=== PATIENT | female | born 1975 | race Caucasian/White ===

== ENCOUNTER 2018-07-26 11:29 | Inpatient (IN) | payer OTHER ==
[~2018-07-26] VITALS: Ht 165.1 cm; Wt 80.4 kg
[2018-07-26] MEDS ORDERED: SODIUM CHLORIDE 0.9% 1,000 ML IVB ONE (12:55)
[2018-07-26] MEDS ORDERED: PANTOPRAZOLE 40 MG/10 ML VIAL INJ IV STA (12:55)
[2018-07-26] MEDS ORDERED: MORPHINE SULF INJ 2 MG/ML SYRINGE 1ML IV ONE (13:00)
[2018-07-26 13:11] LABS: Urine Bacteria FEW /hpf (None Seen); Urine Blood TRACE /uL (Negative); Urine Specific Gravity 1.019 (1.001-1.035); Urine WBC 6 /hpf (0 - 5)
[2018-07-26] MEDS: PROMETHAZINE HCL 25 MG/ML 1ML IV PRN ×2 (13:45→21:43)
[2018-07-26 14:15] LABS: Basophils # (auto) 0.1 uL; Basophils % (auto) 0.6 % (0.0-2.0); Eosinophils # (auto) 0.3 uL; Eosinophils % (auto) 1.4 % (0.0-7.0); Hematocrit 49.1 % (36.0-46.0); Hemoglobin 16.8 g/dL (12.2-16.2); Lymphocytes # (auto) 0.6 uL; Mean Corpuscular Hemoglobin 30.4 pg (28.0-32.0); Mean Corpuscular Hgb Conc. 34.3 g/dL (32.0-36.0); Mean Corpuscular Volume 88.6 fL (80.0-100.0); Monocytes # (auto) 1.1 uL; Neutrophils # (auto) 16.3 uL; Platelet Count (auto) 203 10^3/uL (140-450); Red Blood Cells 5.54 10^6/uL (4.0-5.20); Red Cell Distribution Width 16.7 % (11.8-14.3); White Blood Cell 18.3 10^3/uL (4.4-10.8)
[2018-07-26 14:30] LABS: Albumin 3.9 g/dL (3.4-5.0); Calcium 9.4 mg/dL (8.5-10.1); Potassium 4.3 mmol/L (3.5-5.1)
[2018-07-26] MEDS ORDERED: cefTRIAXone 1GM/50ML D5W 50 ML IV ONE (14:30)
[2018-07-26] MEDS ORDERED: metroNIDAZOLE 500MG/100ML 100 ML IV ONE (14:30)
[2018-07-26 14:31] LABS: INR 0.99 (0.9-1.15); Partial Thromboplastin Time 27.3 sec (23.78-33.04); Prothrombin Time 10.6 sec (9.27-12.13)
[2018-07-26 14:32] LABS: BUN/Creatinine Ratio 17.8
[2018-07-26 14:35] LABS: Bilirubin, Total 0.5 mg/dL (0.2-1.0); Total Protein 7.5 g/dL (6.4-8.2)
[2018-07-26] MEDS ORDERED: PANTOPRAZOLE 80 MG in SODIUM CHL 0.9% 60 ML IV ONE (14:45)
[2018-07-26 14:51] LABS: Magnesium 1.7 mg/dL (1.6-2.6)
[2018-07-26] MEDS ORDERED: HYDROcodone-ACET 5/325MG TAB PO PRN (16:00)
[2018-07-26] MEDS ORDERED: NITROGLYCERIN 0.4 MG SL TAB SL PRN (16:00)
[2018-07-26] MEDS ORDERED: MORPHINE SULF INJ 2 MG/ML SYRINGE 1ML IV PRN (16:00)
[2018-07-26] MEDS ORDERED: ONDANSETRON HCL 4 MG/2 ML VIAL IV PRN (16:00)
[2018-07-26] MEDS ORDERED: DEXTROSE (50%) 50ML SYRG IV PRN (16:00)
[2018-07-26] MEDS ORDERED: LORazepam 2MG/ML-1ML VIAL IV PRN (16:15)
[2018-07-26] MEDS: MORPHINE SULF INJ 2 MG/ML SYRINGE 1ML IV PRN ×2 (16:34→21:43)
[2018-07-26] MEDS: SODIUM CHLORIDE 0.9% 1,000 ML IV SCH (16:36)
[2018-07-26] MEDS: InsuLIN REG 1unit/0.01ml Soln (100units/ml) SC SCH (18:50)
[2018-07-26] MEDS: ACCU-CHEK COMFORT CURVE STRIP VI SCH (18:51)
--- NOTE | 2018-07-26 20:30 | NUR ---
Telemetry admit from [facility] admitted to Telemetry unit after SBAR received. Patient oriented to johnnie Rodgers RN, unit, room, bed, and unit policies regarding patient care and visiting hours. Patient now on continuous telemetry monitoring, tele box # 37 and telemetry reading on arrival to unit is Sinus tachycardia 101. Patient placed on bedside oxygen, weighed by bedscale and encouraged to call if they need something. All questions and concerns addressed, patient verbalized understanding. Admission assessment started. Patient admitted for rectal bleeding. at bedside. Care assumed. Note: Addendum: 07/27/18 at 0600 by Kary Kaufman RN incorrect time Addendum: 07/27/18 at 0601 by Kary Kaufman RN verbal report received from LEON JIMÉNEZ
[2018-07-26 21:00] VITALS: BP 155/99
--- NOTE | 2018-07-26 21:00 | NUR ---
Protonix IV bag not brought up with patient. Called ER but unable to talk to OVERSIZE LOAD PILOT ESCORT who took care of patient at this time. Care continued.
--- NOTE | 2018-07-26 21:30 | NUR ---
Patient used bathroom and verbalized that she had bleeding per rectum, however patient flushed toilet. Patient advised not to flush toilet so I can witness the rectal bleeding. Patient also advised to used bedside commode with a hat for close monitoring and patient safety. Patient verbalized understanding. Called BUSINESS CONTROL SPECIALIST again to follow-up regarding protonix bag since it can not be pulled out because it is only a one time dose. Still unable to talk to BUSINESS CONTROL SPECIALIST who took care of patient. Will attempt to call again. Care continued.
[2018-07-26] MEDS ORDERED: PANTOPRAZOLE IV ONE (21:45)
[2018-07-26] MEDS ORDERED: SODIUM CHL 0.9% IV ONE (21:45)
--- NOTE | 2018-07-26 21:45 | NUR ---
Called ER again, BUTADIENE CONVERTER HELPER who took care of patient still not available. Requested ER staff to check for protonix bag, was advised said medication was not there and to call Pharmacy instead. Pharmacy called, per pharmacy, they will not be able to send bag because it has been documented that said medication was already started in ER. Pharmacy however agreed to send the remaining half dose that still needed to be infused. Will wait for the medication to arrive. Care continued.
[2018-07-26 22:00] VITALS: BP 155/99
[2018-07-26] MEDS ORDERED: FAMOTIDINE (10MG/ML) 2ML VL IV SCH (22:00)
--- NOTE | 2018-07-26 22:00 | NUR ---
Witnessed milena red blood per rectum from patient using bedside commode. Half bag of protonix IV received from Pharmacy, infusion started as ordered by MD. Hospitalist paged regarding patient's current status. Care continued.
[2018-07-26] MEDS: metroNIDAZOLE 500MG/100ML 100 ML IV SCH (22:21)
[2018-07-26] MEDS: PANTOPRAZOLE 80 MG in SODIUM CHL 0.9% 60 ML IV SCH (23:00)
--- NOTE | 2018-07-26 23:00 | NUR ---
Received call from hospitalist Fantasma Paez NP, order received for H&H stat and to continue IV protonix drip. Previously ordered one time IV Protonix drip still infusing. Care continued.
[2018-07-26 23:18] LABS: Hematocrit 49.9 % (36.0-46.0)
--- NOTE | 2018-07-26 23:30 | NUR ---
Unable to find IV protonix even through global find. bag end sewer made aware. Care continued.
--- NOTE | 2018-07-27 | NUR ---
Hospitalist Fantasma Paez NP paged. awaiting for call back. Care continued.
--- NOTE | 2018-07-27 00:30 | NUR ---
Call back received from Fantasma Paez NP, advised to contact manager operations research pharmacy. cutter operator brick Melita made aware, per broker in charge, she will notify housekeeping staff. Patient still bleeding per rectum. Care continued.
[2018-07-27] MEDS: ACCU-CHEK COMFORT CURVE STRIP VI SCH ×4 (00:36→17:47)
[2018-07-27] MEDS: LABETALOL HCL 5 MG/ML ML 20ML VIAL IV PRN ×3 (00:37→13:39)
[2018-07-27] MEDS: InsuLIN REG 1unit/0.01ml Soln (100units/ml) SC SCH ×4 (00:47→17:47)
--- NOTE | 2018-07-27 01:00 | NUR ---
Per charge account authorizer Debbie, hotel houseman said there is no protonix IV available and hospitalist will be made aware. Care continued.
--- NOTE | 2018-07-27 02:00 | NUR ---
Protonix IV drip almost done, awaiting for orders from hospitalist. Care continued.
[2018-07-27] MEDS: SODIUM CHLORIDE 0.9% 1,000 ML IV SCH ×3 (02:11→21:58)
[2018-07-27] MEDS: PROMETHAZINE HCL 25 MG/ML 1ML IV PRN ×2 (02:17→06:59)
[2018-07-27] MEDS: MORPHINE SULF INJ 2 MG/ML SYRINGE 1ML IV PRN ×3 (02:18→11:38)
--- NOTE | 2018-07-27 03:30 | NUR ---
Patient had about 400c of milena blood per rectum. Hospitalist Fantasma Paez NP, paged. Care continued.
[2018-07-27] MEDS ORDERED: CLOP75TA41 (03:36)
[2018-07-27] MEDS ORDERED: LISI-646 PO (03:36)
[2018-07-27] MEDS ORDERED: MET50T (03:36)
[2018-07-27] MEDS ORDERED: AMLO5TAB13 PO (03:36)
[2018-07-27] MEDS ORDERED: ALPR1TAB7 PO (03:36)
[2018-07-27] MEDS ORDERED: PAR20T PO (03:36)
[2018-07-27] MEDS ORDERED: ATOR40TA52 (03:36)
[2018-07-27] MEDS ORDERED: METF-370 PO (03:36)
[2018-07-27] MEDS ORDERED: CLON0.1T PO (03:36)
--- NOTE | 2018-07-27 04:00 | NUR ---
Hospitalist Fantasma Paez NP, repaged, call back received, updated with patient's status. Orders received and carried out. Care continued.
[2018-07-27] MEDS ORDERED: OCTREOTIDE ACETATE 500 MCG/ML VL ONE (04:13)
[2018-07-27] MEDS ORDERED: OCTREOTIDE ACETATE 500 MCG in SODIUM CHL 0.9% 99 ML IV SCH ×5 (04:15→04:30)
[2018-07-27] MEDS ORDERED: FAMOTIDINE (10MG/ML) 2ML VL IV ONE (04:15)
[2018-07-27 05:00] VITALS: BP 157/105
[2018-07-27] MEDS: metroNIDAZOLE 500MG/100ML 100 ML IV SCH ×3 (06:08→21:48)
--- NOTE | 2018-07-27 07:00 | NUR ---
Called lab to follow-up on patient's lab in AM. Advised punch machine hand drawing blood. Will be giving report to oncoming RN.
--- NOTE | 2018-07-27 07:30 | NUR ---
morning note patient resting in bed with even and unlabored respirations, no distress noted. Instructed patient on POC, fall precautions and to call for assistance. Patient verbalized understanding. Fall precautions in place with bed in low, locked position, call light within reach. BM noted in BSC is milena liquid BM, small amount of clots noted. GI consult in place per Md's orders. Bed alarm turned on for safety. Will continue to monitor q1hr & PRN.
--- NOTE | 2018-07-27 07:30 | NUR ---
Rounded patient with oncoming RN. Care endorsed to oncoming RN.
[2018-07-27 08:00] VITALS: BP 163/104
--- NOTE | 2018-07-27 08:00 | NUR ---
Called lab to follow up on lab draws. Per Guerda, no blood drawn yet but will advise black top raker to draw blood. Communication relayed to day JESSY.
[2018-07-27 08:28] LABS: Basophils # (auto) 0.1 uL; Basophils % (auto) 0.8 % (0.0-2.0); Eosinophils # (auto) 0.2 uL; Hematocrit 50.7 % (36.0-46.0); Hemoglobin 16.9 g/dL (12.2-16.2); Lymphocytes # (auto) 0.7 uL; Lymphocytes % (auto) 4.2 % (10.0-50.0); Mean Corpuscular Hemoglobin 29.8 pg (28.0-32.0); Mean Corpuscular Hgb Conc. 33.3 g/dL (32.0-36.0); Mean Corpuscular Volume 89.4 fL (80.0-100.0); Monocytes # (auto) 1.2 uL; Monocytes % (auto) 7.2 % (0.0-12.0); Neutrophils # (auto) 14.2 uL; Neutrophils % (auto) 86.8 % (37.0-80.0); Platelet Count (auto) 194 10^3/uL (140-450); Red Blood Cells 5.67 10^6/uL (4.0-5.20); Red Cell Distribution Width 16.9 % (11.8-14.3); White Blood Cell 16.3 10^3/uL (4.4-10.8)
[2018-07-27 08:50] LABS: BUN/Creatinine Ratio 11.7; Calcium 8.1 mg/dL (8.5-10.1)
[2018-07-27] MEDS ORDERED: CLOP75TA28 PO (09:25)
[2018-07-27] MEDS ORDERED: METO-158 PO (09:25)
[2018-07-27] MEDS ORDERED: ATOR40TA52 PO (09:25)
[2018-07-27] MEDS: cefTRIAXone 1GM/50ML D5W 50 ML IV SCH (09:33)
[2018-07-27] MEDS: PANTOPRAZOLE 80 MG in SODIUM CHL 0.9% 60 ML IV SCH (09:40)
--- NOTE | 2018-07-27 09:40 | NUR ---
2 milena, liquid BM's noted Bright red blood noted with clots in the BSC. GI consult in place per MD's orders.
[2018-07-27] MEDS ORDERED: FAMOTIDINE (10MG/ML) 2ML VL IV SCH (10:00)
--- NOTE | 2018-07-27 10:04 | NUR ---
was at bedside - Dr. Robertson POC discussed with this RN.
--- NOTE | 2018-07-27 10:53 | NUR ---
MD was at bedside - Dr. Brewer Notified MD of patient's home medications and VS. MD verbalized understanding.
--- NOTE | 2018-07-27 10:58 | NUR ---
RE: Urine culture Called microbiology to have urine culture performed on urine specimen previously collected. Spoke with Donovan.
[2018-07-27] MEDS ORDERED: LISINOPRIL 20 MG TAB PO ONE (11:00)
[2018-07-27] MEDS: PANTOPRAZOLE 40 MG TAB PO SCH ×2 (11:39→21:48)
[2018-07-27 12:00] VITALS: BP 165/114
--- NOTE | 2018-07-27 12:30 | NUR ---
HR noted to be ST 147 bpm Assessed patient. Patient currently using the BSC. Patient asymptomatic at this time. Instructed patient to notify staff immediately if condition changes. Patient verbalized understanding. Call light within reach. Will continue to monitor q1hr & PRN.
--- NOTE | 2018-07-27 12:35 | NUR ---
Patient returned to bed- HR noted to be ST 125bpm call light within reach. No distress noted.
[2018-07-27] MEDS: cloNIDine HCL 0.1 MG TAB PO PRN (13:37)
--- NOTE | 2018-07-27 13:56 | NUR ---
AMA to smoke signed & placed in the chart Smoking cessation education provided. Patient verbalized understanding. Patient taken to smoking area via wheelchair. Patient's mother at her side. No distress noted.
--- NOTE | 2018-07-27 14:40 | NUR ---
Scooby Brewer RE: pain management Patient reports pain is not being management with current pain medication.
--- NOTE | 2018-07-27 15:19 | NUR ---
RE: pain management Updated Dr. Brewer of patient's reported pain. MD verbalized understanding. Orders received and read back to verify.
[2018-07-27] MEDS: HYDROmorphone HCL 2 MG/ML VL IV PRN ×2 (15:37→20:19)
--- NOTE | 2018-07-27 15:37 | NUR ---
RE: pain management Pain medication administered per MD's orders. Education provided on pain medication, safety precautions and fall precautions. Patient verbalized understanding. Fall precautions in place with bed in low, locked position with x2 side rails up, call light within reach. Patient's mother at bedside at this time. Will continue to monitor q1hr & PRN.
[2018-07-27 16:30] VITALS: BP 108/69
--- NOTE | 2018-07-27 16:45 | NUR ---
Patient transferred to room 216B via hospital bed. All of patient's belongings transferred with patient. Patient's mother at bedside. No distress noted. Bed in low, locked position with x2 side rails up. Call light within reach. Will continue to monitor q1hr & PRN.
--- NOTE | 2018-07-27 18:35 | NUR ---
End of shift patient resting in bed with even and unlabored respirations, no distress noted. Patient has had multiple milena blood BM's throughout the shift. All BM's have been bright red in color with small amount of clots noted. BSC at bedside. Fall precautions in place with bed in low, locked position with x2 side rails up. Call light within reach. Patient's mother is at bedside.
--- NOTE | 2018-07-27 19:27 | NUR ---
Care endorsed to JESSY Oseguera.
--- NOTE | 2018-07-27 20:00 | NUR ---
Opening Shift Note Assumed care of patient, awake and alert, oriented x 4. On room air with even and unlabored respirations. No S/S of distress or SOB. patient denies nausea at this time, and tolerated clear liquid diet well. BSc within reach. Informed patient stool samples is needed, patient verbalized understanding. IV to left FA intact and patent, right FA intact and infusing NS at 100ml/hr. Patient reports lower abd pain 10/10. Abd soft, active bowel sounds, tender upon palpation. Bed low locked position with side rails up x 2 and call light within reach. Instructed on POC and to call for assist PRN, will continue to monitor for changes Q1hr and PRN.
[2018-07-27 21:30] VITALS: BP 136/92
[2018-07-28] MEDS: InsuLIN REG 1unit/0.01ml Soln (100units/ml) SC SCH ×4 (00:19→18:27)
[2018-07-28] MEDS: ACCU-CHEK COMFORT CURVE STRIP VI SCH ×5 (00:19→23:57)
[2018-07-28] MEDS: ALPRAZolam 0.5 MG TAB PO PRN ×3 (00:20→18:29)
[2018-07-28] MEDS: HYDROmorphone HCL 2 MG/ML VL IV PRN ×5 (00:51→20:53)
[2018-07-28 05:01] VITALS: BP 140/85
[2018-07-28] MEDS: metroNIDAZOLE 500MG/100ML 100 ML IV SCH ×3 (05:50→21:47)
[2018-07-28 06:20] LABS: Basophils # (auto) 0.1 uL; Basophils % (auto) 0.7 % (0.0-2.0); Eosinophils # (auto) 0.3 uL; Hematocrit 44.8 % (36.0-46.0); Hemoglobin 14.8 g/dL (12.2-16.2); Lymphocytes # (auto) 0.8 uL; Lymphocytes % (auto) 6.4 % (10.0-50.0); Mean Corpuscular Hemoglobin 30.1 pg (28.0-32.0); Monocytes # (auto) 0.8 uL; Monocytes % (auto) 6.5 % (0.0-12.0); Neutrophils # (auto) 10.3 uL; Neutrophils % (auto) 84.4 % (37.0-80.0); Platelet Count (auto) 161 10^3/uL (140-450); Red Blood Cells 4.92 10^6/uL (4.0-5.20); Red Cell Distribution Width 17.2 % (11.8-14.3); White Blood Cell 12.2 10^3/uL (4.4-10.8)
[2018-07-28 06:40] LABS: BUN/Creatinine Ratio 10.3; Calcium 7.7 mg/dL (8.5-10.1); Potassium 3.5 mmol/L (3.5-5.1)
--- NOTE | 2018-07-28 07:03 | NUR ---
Closing note patient sleeping in bed with noted chest rise and fall, even and unlabored respirations, on oxygen at 2L via NC. No s/s of distress. Endorsed care to day shift JESSY Robison.
--- NOTE | 2018-07-28 08:00 | NUR ---
Morning Note Patient resting in bed with even and unlabored respirations, no distress noted. Instructed patient on POC, fall precautions and to call for assist PRN. Bed in lowest locked position, call light within reach, side rails up x2. Call light within reach. BSC at bedside. Will continue to monitor for changes Q1hr and PRN.
[2018-07-28 09:00] VITALS: BP 129/65
[2018-07-28] MEDS: cefTRIAXone 1GM/50ML D5W 50 ML IV SCH (09:28)
[2018-07-28] MEDS: PANTOPRAZOLE 40 MG TAB PO SCH ×2 (09:29→21:47)
[2018-07-28] MEDS: PARoxetine 20 MG TAB PO SCH (09:29)
[2018-07-28] MEDS: LISINOPRIL 20 MG TAB PO SCH (09:30)
[2018-07-28] MEDS: SODIUM CHLORIDE 0.9% 1,000 ML IV SCH ×2 (09:31→18:00)
--- NOTE | 2018-07-28 10:17 | NUR ---
Stool specimen collected and sent to lab per MD's order.
--- NOTE | 2018-07-28 12:57 | NUR ---
I spoke with Dr. Green to discuss the plan of care for this patient-plan is for colonoscopy on Tuesday (due to patient taking Plavix last on 07/25)-patient still c/o rectal bleeding and abd pain. I called [facility] [phone] and left message for case preparer and liner Chantel to request authorization for patient's stay as well as to discuss possible need to transfer back in network-awaiting return call.
[2018-07-28 13:00] VITALS: BP 125/75
--- NOTE | 2018-07-28 13:59 | NUR ---
Patient off unit via wheelchair to smoke AMA signed and present in the chart. Patient requested to be disconnected from IV maintenance fluids per MD's orders. Education provided to the patient on MD's orders. Patient verbalized understanding. Patient's mother at patient's side. No distress noted.
--- NOTE | 2018-07-28 16:05 | NUR ---
was at bedside - Dr. Robertson
--- NOTE | 2018-07-28 16:10 | NUR ---
IV removed/IV initiated IV removed on the RFA with clean technique, catheter intact. Dressing applied. Patient tolerated well. 20G IV started with clean technique on second attempt. IV secured. IV education provided to patient. Patient verbalized understanding. Bed in lowest, locked position with x2 side rails up. Call light within reach. Will continue to monitor q1hr & PRN.
[2018-07-28 17:00] VITALS: BP 155/76
[2018-07-28] MEDS: LABETALOL HCL 5 MG/ML ML 20ML VIAL IV PRN (17:02)
--- NOTE | 2018-07-28 19:13 | NUR ---
Care endorsed to JESSY Santana.
--- NOTE | 2018-07-28 19:30 | NUR ---
Opening Shift Note Assumed care of patient, awake and alert. No S/S of distress/SOB. Family at bedside. Instructed on POC and to call for assist PRN, will continue to monitor for changes Q1hr and PRN.
--- NOTE | 2018-07-28 19:40 | NUR ---
Patient went down to smoke with . Performed patient teaching regarding effects of smoking and risks. Patient went down anyway.
[2018-07-28 21:19] VITALS: BP 149/90
[2018-07-29] MEDS: InsuLIN REG 1unit/0.01ml Soln (100units/ml) SC SCH ×4 (00:01→18:28)
[2018-07-29] MEDS: ALPRAZolam 0.5 MG TAB PO PRN ×2 (01:30→02:48)
[2018-07-29] MEDS: HYDROmorphone HCL 2 MG/ML VL IV PRN ×4 (01:30→22:19)
[2018-07-29] MEDS: SODIUM CHLORIDE 0.9% 1,000 ML IV SCH ×3 (04:41→23:21)
[2018-07-29 05:24] VITALS: BP 146/81
[2018-07-29] MEDS: ACCU-CHEK COMFORT CURVE STRIP VI SCH ×3 (06:00→17:43)
[2018-07-29] MEDS: metroNIDAZOLE 500MG/100ML 100 ML IV SCH ×3 (06:09→21:58)
[2018-07-29 08:10] LABS: Basophils # (auto) 0.1 uL; Basophils % (auto) 0.8 % (0.0-2.0); Eosinophils # (auto) 0.4 uL; Hematocrit 39.5 % (36.0-46.0); Hemoglobin 13.3 g/dL (12.2-16.2); Lymphocytes # (auto) 0.9 uL; Lymphocytes % (auto) 8.8 % (10.0-50.0); Mean Corpuscular Hemoglobin 30.9 pg (28.0-32.0); Mean Corpuscular Hgb Conc. 33.8 g/dL (32.0-36.0); Mean Corpuscular Volume 91.4 fL (80.0-100.0); Monocytes # (auto) 0.7 uL; Monocytes % (auto) 6.9 % (0.0-12.0); Neutrophils # (auto) 7.8 uL; Neutrophils % (auto) 79.5 % (37.0-80.0); Platelet Count (auto) 162 10^3/uL (140-450); Red Blood Cells 4.32 10^6/uL (4.0-5.20); Red Cell Distribution Width 17.2 % (11.8-14.3); White Blood Cell 9.8 10^3/uL (4.4-10.8)
[2018-07-29 08:27] LABS: BUN/Creatinine Ratio 5.9; Calcium 7.9 mg/dL (8.5-10.1); Potassium 3.6 mmol/L (3.5-5.1)
[2018-07-29 09:00] VITALS: BP 148/81
[2018-07-29] MEDS: cefTRIAXone 1GM/50ML D5W 50 ML IV SCH (09:58)
[2018-07-29] MEDS: PANTOPRAZOLE 40 MG TAB PO SCH ×2 (09:58→21:57)
[2018-07-29] MEDS: PARoxetine 20 MG TAB PO SCH (09:58)
[2018-07-29] MEDS: LISINOPRIL 20 MG TAB PO SCH (09:59)
[2018-07-29 13:00] VITALS: BP 171/92
--- NOTE | 2018-07-29 13:00 | NUR ---
Red liquid seen in patient's bowel movement.
[2018-07-29 16:59] VITALS: BP 153/86
[2018-07-29] MEDS: LABETALOL HCL 5 MG/ML ML 20ML VIAL IV PRN ×2 (17:28→22:00)
--- NOTE | 2018-07-29 19:26 | NUR ---
Change of shift given to chief projectionist RN. No distress noted.
--- NOTE | 2018-07-29 19:30 | NUR ---
Opening Shift Note Assumed care of patient, awake and alert. No c/o discomfort to this RN at this time. and [id number] present at bedside. pt planning to go outside to smoke. No S/S of distress/SOB. Insructed on POC and to callfor assist PRN, will continue to monitor for changes Q1hr and PRN.
[2018-07-29 19:38] VITALS: BP 163/97
--- NOTE | 2018-07-29 20:05 | NUR ---
This RN entered pt's room. still present, [id number] who is employee of this hospital in radiology dept, leaving while RN speaking with pt. Bed low; nurse call light at pt's side. Pt speaking of how her blood pressure medications and pain medicine have not been being given as she takes them at home. Discussed the differences in scheduling with her and her . Pt repeatedly talking of wanting to go outside to smoke and is angry that employees are not required to take pts outside to do this. Explained to pt that hospital feels employees are allowed to protect their own health and after visiting hours outside is not as safe as during day light hours. Discussed pt's self tx of her GI system/constipation reported to this RN. Pt states she has been doing enemas 3x/week. Her interrupted stating pt has devised her own mixture. Then pt said she uses water and hair conditioner (Suave coconut oil hair conditioner.) When RN asked why, pt stated that she is trying to lubricate the feces. RN discussed with pt and her the need to speak to her doctors and get their recommendations especially the GI specialist which she says she has never had one before now. She states she has been constipated all her adult life and treating herself using her mom's suggestions. (States her mom 'used to be an RN.') Pt wanting dilaudid increased and she will be needing it every time it is ordered. Her said that she had been receiving anti-anxiety meds and pain meds routinely at home not prn. This RN stated that since she had already received labetalol with little effect so far and now clonidine and xanax, she needed to wait to go downstairs to smoke until we determine if her bp is safe and WNL. This RN explained that the activity and smoking would probably increase her blood pressure more, but dilaudid on top of the three other meds may become unsafe at this moment. This pt and her stated he would escort her downstairs, stay with her, then bring her back upstairs. Explained to pt that she needed to have her blood pressure rechecked in 30 minutes. Also this RN explained that she is not to be gone from the room > 30 minutes or her room could be released/given away. Pt stated she had not heard this. Both went downstairs. This RN left to take care of pt calling with concerns re. high blood pressure.
--- NOTE | 2018-07-29 20:15 | NUR ---
Clonidine 0.1mg po i given for bp of 163/97, and Xanax i po given as requested by pt for anxiety.
[2018-07-29 21:15] VITALS: BP 208/114
--- NOTE | 2018-07-29 21:50 | NUR ---
RECEIVED REPORT FROM RD JIMÉNEZ
--- NOTE | 2018-07-29 21:50 | NUR ---
Report given to Kavya Esparza RN.
[2018-07-30] MEDS: ACCU-CHEK COMFORT CURVE STRIP VI SCH ×4 (00:08→17:39)
[2018-07-30] MEDS: InsuLIN REG 1unit/0.01ml Soln (100units/ml) SC SCH ×4 (00:08→17:39)
[2018-07-30] MEDS: cloNIDine HCL 0.1 MG TAB PO PRN (04:46)
[2018-07-30 04:50] VITALS: BP 170/89
[2018-07-30] MEDS: metroNIDAZOLE 500MG/100ML 100 ML IV SCH ×3 (05:59→21:20)
[2018-07-30] MEDS: LABETALOL HCL 5 MG/ML ML 20ML VIAL IV PRN ×2 (06:14→22:53)
--- NOTE | 2018-07-30 07:18 | NUR ---
Opening Shift Note Assumed care of patient, awake and alert. No S/S of distress/SOB or pain. Instructed on POC and to call for assistance PRN, will continue to monitor for changes Q1hr and PRN.
[2018-07-30] MEDS: HYDROmorphone HCL 2 MG/ML VL IV PRN ×3 (07:59→20:22)
[2018-07-30 08:08] VITALS: BP 144/96
[2018-07-30 09:00] VITALS: BP_SYST 135; BP_SYST 144; BP_DIAS 92; BP_DIAS 96
[2018-07-30] MEDS: cefTRIAXone 1GM/50ML D5W 50 ML IV SCH (10:06)
[2018-07-30] MEDS: METOPROLOL TARTRATE 50 MG TAB PO SCH ×2 (10:06→21:20)
[2018-07-30] MEDS: PANTOPRAZOLE 40 MG TAB PO SCH ×2 (10:07→21:20)
[2018-07-30] MEDS: PARoxetine 20 MG TAB PO SCH (10:07)
[2018-07-30] MEDS: amLODIPine BESYLATE 5 MG TAB PO SCH (10:07)
[2018-07-30] MEDS: LISINOPRIL 20 MG TAB PO SCH ×2 (10:08→21:21)
[2018-07-30] MEDS: SODIUM CHLORIDE 0.9% 1,000 ML IV SCH ×2 (10:09→20:00)
[2018-07-30] MEDS ORDERED: GOLYTELY 4L KIT PO ONE (12:00)
[2018-07-30 13:00] VITALS: BP 147/91
--- NOTE | 2018-07-30 14:24 | NUR ---
Nutrition Assessment Notes please see attached link for complete assessment Est. Needs BW [id number] kcal (23-25 kcal/kgBW), 77-84 gms pro (1.0-1.1 gm/kgBW). Will continue to monitor pertinent labs and reassess nutrient need prn. Addendum: 07/30/18 at [address] Amended: Links added.
[2018-07-30 17:00] VITALS: BP 135/92
[2018-07-30] MEDS: ALPRAZolam 0.5 MG TAB PO PRN (17:37)
--- NOTE | 2018-07-30 19:20 | NUR ---
Opening Shift Note Assumed care of patient from day shift JESSY Atkinson. Pt is awake and alert and oriented x4. No S/S of distress/SOB or pain. Safety maintained with bed rails upx2, locked and in lowest position with call lowe within reach. Instructed on POC and to call for assist PRN, will continue to monitor for changes Q1hr and PRN.
--- NOTE | 2018-07-30 19:21 | NUR ---
Change of shift given to night cleaner RN. No distress noted.
--- NOTE | 2018-07-30 19:50 | NUR ---
PT OFF UNIT PT AMA OFF UNIT TO SMOKE, BROUGHT PATIENT DOWN VIA WHEELCHAIR.
--- NOTE | 2018-07-30 20:15 | NUR ---
PT RETURNED TO UNIT PT RETURNED TO UNIT FROM AMA TO SMOKE. RESTING IN BED, NO S/S DISTRESS.
[2018-07-30 22:00] VITALS: BP 173/94
[2018-07-31] MEDS: InsuLIN REG 1unit/0.01ml Soln (100units/ml) SC SCH ×5 (00:02→23:14)
[2018-07-31] MEDS: ACCU-CHEK COMFORT CURVE STRIP VI SCH ×5 (00:02→23:15)
[2018-07-31] MEDS: HYDROmorphone HCL 2 MG/ML VL IV PRN ×4 (02:37→22:10)
[2018-07-31] MEDS ORDERED: GOLYTELY 4L KIT PO ONE (04:00)
[2018-07-31] MEDS: ALPRAZolam 0.5 MG TAB PO PRN ×2 (04:47→14:47)
[2018-07-31] MEDS: SODIUM CHLORIDE 0.9% 1,000 ML IV SCH ×2 (04:48→16:00)
[2018-07-31 05:45] VITALS: BP 163/81
[2018-07-31] MEDS: metroNIDAZOLE 500MG/100ML 100 ML IV SCH ×3 (05:51→22:12)
[2018-07-31] MEDS: cloNIDine HCL 0.1 MG TAB PO PRN ×2 (05:58→18:18)
[2018-07-31] MEDS ORDERED: SODIUM CHLORIDE LOCK 10 ML ONE (08:17)
[2018-07-31] MEDS ORDERED: diphenhdrAMINE HCL 50 MG/1 ML VL ONE (08:18)
[2018-07-31 09:00] VITALS: BP 127/85
[2018-07-31] MEDS: fentaNYL CITRATE 100 MCG/2 ML VL ONE ×2 (11:17→11:20)
[2018-07-31] MEDS: MIDAZOLAM HCL 5 MG/ML-1ML VIAL ONE ×2 (11:17→11:20)
[2018-07-31 13:00] VITALS: BP 102/96
[2018-07-31] MEDS: amLODIPine BESYLATE 5 MG TAB PO SCH (13:15)
[2018-07-31] MEDS: PARoxetine 20 MG TAB PO SCH (13:15)
[2018-07-31] MEDS: cefTRIAXone 1GM/50ML D5W 50 ML IV SCH (13:15)
[2018-07-31] MEDS: METOPROLOL TARTRATE 50 MG TAB PO SCH ×2 (13:16→22:11)
[2018-07-31] MEDS: LISINOPRIL 20 MG TAB PO SCH ×2 (13:16→22:12)
[2018-07-31] MEDS: PANTOPRAZOLE 40 MG TAB PO SCH ×2 (13:16→22:10)
[2018-07-31 17:00] VITALS: BP 168/99
--- NOTE | 2018-07-31 18:24 | NUR ---
MD returned call. Patient complains of having "anxiety attack." Blood pressure is 203/126. No distress noted. Patient denies CP, SOB, or BRAND/blurred vision. MD restarted patient on home medication.
[2018-07-31] MEDS ORDERED: cloNIDine HCL 0.1 MG TAB PO ONE ×2 (18:30→21:15)
--- NOTE | 2018-07-31 19:18 | NUR ---
Change of shift given to shift boss RN. No distress noted. Blood pressure reassessment delegated to shift boss RN.
--- NOTE | 2018-07-31 19:28 | NUR ---
Change of shift given to shift supervisor RN. No distress noted. Addendum: 07/31/18 at 1 by ELIZABET SAINZ RN wrong time
--- NOTE | 2018-07-31 19:30 | NUR ---
received pt from day rn poc reviewed
--- NOTE | 2018-07-31 20:00 | NUR ---
resting comfortable with hob up family at bedside, pt in w/c all questions and concerns addressed
[2018-07-31 22:00] VITALS: BP 124/80
[2018-08-01] MEDS: HYDROmorphone HCL 2 MG/ML VL IV PRN ×2 (01:47→05:41)
[2018-08-01] MEDS: SODIUM CHLORIDE 0.9% 1,000 ML IV SCH ×2 (01:54→12:00)
[2018-08-01 04:45] VITALS: BP 117/79
--- NOTE | 2018-08-01 04:59 | NUR ---
awoke c/o abdominal pain , will medicate as ordered
[2018-08-01] MEDS: ACCU-CHEK COMFORT CURVE STRIP VI SCH ×2 (06:12→12:00)
[2018-08-01] MEDS: metroNIDAZOLE 500MG/100ML 100 ML IV SCH (06:12)
[2018-08-01] MEDS: InsuLIN REG 1unit/0.01ml Soln (100units/ml) SC SCH ×2 (06:14→12:00)
--- NOTE | 2018-08-01 06:46 | NUR ---
report given to am nurse poc reviewed
[2018-08-01 07:21] LABS: Basophils # (auto) 0.1 uL; Basophils % (auto) 0.8 % (0.0-2.0); Eosinophils # (auto) 0.5 uL; Eosinophils % (auto) 4.1 % (0.0-7.0); Hematocrit 40.7 % (36.0-46.0); Lymphocytes # (auto) 1.1 uL; Mean Corpuscular Hemoglobin 30.8 pg (28.0-32.0); Mean Corpuscular Hgb Conc. 34.4 g/dL (32.0-36.0); Mean Corpuscular Volume 89.4 fL (80.0-100.0); Monocytes # (auto) 0.8 uL; Monocytes % (auto) 6.7 % (0.0-12.0); Neutrophils # (auto) 8.8 uL; Neutrophils % (auto) 78.4 % (37.0-80.0); Nucleated Red Blood Cells % 0.1 %; Platelet Count (auto) 248 10^3/uL (140-450); Red Blood Cells 4.56 10^6/uL (4.0-5.20); Red Cell Distribution Width 16.8 % (11.8-14.3); White Blood Cell 11.2 10^3/uL (4.4-10.8)
[2018-08-01 07:39] LABS: Potassium 3.2 mmol/L (3.5-5.1)
[2018-08-01] MEDS: ALPRAZolam 0.5 MG TAB PO PRN (08:07)
[2018-08-01 09:00] VITALS: BP 131/81
[2018-08-01] MEDS ORDERED: cloNIDine HCL 0.1 MG TAB PO SCH (10:00)
[2018-08-01] MEDS: cefTRIAXone 1GM/50ML D5W 50 ML IV SCH (10:14)
[2018-08-01] MEDS: PANTOPRAZOLE 40 MG TAB PO SCH (10:14)
[2018-08-01] MEDS: METOPROLOL TARTRATE 50 MG TAB PO SCH (10:14)
[2018-08-01] MEDS: PARoxetine 20 MG TAB PO SCH (10:15)
[2018-08-01] MEDS: LISINOPRIL 20 MG TAB PO SCH (10:15)
[2018-08-01] MEDS: amLODIPine BESYLATE 5 MG TAB PO SCH (10:15)
[2018-08-01] MEDS ORDERED: POTASSIUM CHL 20 Meq TABLET PO ONE (11:15)
[2018-08-01 11:29] VITALS: BP 131/81
--- NOTE | 2018-08-01 12:00 | NUR ---
Spoke with Dr. Brewer. MD aware patient's blood pressure is 155/100. Patient states this is her baseline blood pressure. Patient is asymptotic and denies CP, SOB, BRAND, blurred vision, or distress. MD stated patient can be discharged home with current blood pressure.
--- NOTE | 2018-08-01 12:42 | NUR ---
Discharge instructions given as ordered. Encourage to follow up with PMD as instructed. All questions and concerns addressed. Patient verbalized understanding. Medication reconciliation form completed and copy given to patient. Patient denies home medications held in Pharmacy. IV removed with catheter intact, pressure dressing applied. Telemetry unit returned to [facility]. Patient taken to vehicle via wheelchair with all personal belongings, accompanied by staff and family member. No distress noted at time of departure.
[2018-08-01 17:49] VITALS: BP 156/76
== END 2018-08-01 12:42 | disposition home or self-care (01) | DRG 393 ==
LOC: ER 11:29 → EDBD 11:29 → TELE 16:06 → TELE-CENTR 20:25
PROVIDERS: ADMIT Internal Medicine; ATTEND Internal Medicine
PROC: 0DB68ZX Excision of Stomach, Via Natural or Artificial Opening Endoscopic, Diagnostic (ICD-10-PCS; principal; 2018-07-27)
PROC: 0DBM8ZX Excision of Descending Colon, Via Natural or Artificial Opening Endoscopic, Diagnostic (ICD-10-PCS; 2018-07-31)
PROC: 0DBN8ZX Excision of Sigmoid Colon, Via Natural or Artificial Opening Endoscopic, Diagnostic (ICD-10-PCS; 2018-07-31)
DX: K55.9 Vascular disorder of intestine, unspecified (principal); K29.71 Gastritis, unspecified, with bleeding; K29.81 Duodenitis with bleeding; R65.10 Systemic inflammatory response syndrome (SIRS) of non-infectious origin without acute organ dysfunction; I10 Essential (primary) hypertension; E11.9 Type 2 diabetes mellitus without complications; D64.9 Anemia, unspecified; F17.210 Nicotine dependence, cigarettes, uncomplicated; F32.9 Major depressive disorder, single episode, unspecified; F41.9 Anxiety disorder, unspecified; K76.0 Fatty (change of) liver, not elsewhere classified; Z82.49 Family history of ischemic heart disease and other diseases of the circulatory system; Z86.73 Personal history of transient ischemic attack (TIA), and cerebral infarction without residual deficits; Z90.710 Acquired absence of both cervix and uterus; Z88.2 Allergy status to sulfonamides; Z71.6 Tobacco abuse counseling
CPT/HCPCS: 36415; 43239; 45380; 71045; 74176; 80048; 80053; 81001; 82150; 82962; 83690; 83735; 84702; 85014; 85018; 85025; 85610; 85730; 87045; 87086; 87493; 87899; 94761; 96361; 96365; 96367; 96368; 96375; C9113; G0378; J0696; J1815; J2250; J2405; J3490

== ENCOUNTER 2019-01-24 19:07 | Emergency (ER) | payer SELFPAY ==
[~2019-01-24] VITALS: Ht 165.1 cm; Wt 72.6 kg
[~2019-01-24 19:07] MED LIST: ALPR1TAB7 PO; AMLO5TAB15 PO; ATOR40TA52 PO; CLON0.1T PO; CLOP75TA28 PO; LISI-646 PO; METF-370 PO; METO-158 PO; PAR20T PO
[2019-01-24 19:55] LABS: Basophils # (auto) 0.1 uL; Basophils % (auto) 0.9 % (0.0-2.0); Eosinophils # (auto) 0.3 uL; Eosinophils % (auto) 2.6 % (0.0-7.0); Hematocrit 49.7 % (36.0-46.0); Hemoglobin 17.1 g/dL (12.2-16.2); Lymphocytes # (auto) 1.1 uL; Lymphocytes % (auto) 9.9 % (10.0-50.0); Mean Corpuscular Hemoglobin 32.2 pg (28.0-32.0); Mean Corpuscular Hgb Conc. 34.3 g/dL (32.0-36.0); Mean Corpuscular Volume 93.7 fL (80.0-100.0); Monocytes # (auto) 0.5 uL; Monocytes % (auto) 4.7 % (0.0-12.0); Neutrophils # (auto) 8.9 uL; Neutrophils % (auto) 81.9 % (37.0-80.0); Platelet Count (auto) 240 10^3/uL (140-450); White Blood Cell 10.9 10^3/uL (4.4-10.8)
[2019-01-24 20:19] LABS: Albumin 4.4 g/dL (3.4-5.0); BUN/Creatinine Ratio 12.9; Calcium 9.1 mg/dL (8.5-10.1); Potassium 3.7 mmol/L (3.5-5.1)
[2019-01-24 20:35] LABS: Bilirubin, Total 0.8 mg/dL (0.2-1.0); Total Protein 7.8 g/dL (6.4-8.2)
[2019-01-24 20:36] VITALS: BP 150/83
[2019-01-24] MEDS ORDERED: LORazepam 2MG/ML-1ML VIAL IV ONE (21:15)
== END 2019-01-24 22:20 | disposition home or self-care (01) ==
LOC: EDBD 19:07 → ER 19:07
DX: F41.9 Anxiety disorder, unspecified (principal); F19.939 Other psychoactive substance use, unspecified with withdrawal, unspecified; E11.9 Type 2 diabetes mellitus without complications; I10 Essential (primary) hypertension; F17.210 Nicotine dependence, cigarettes, uncomplicated; Z86.73 Personal history of transient ischemic attack (TIA), and cerebral infarction without residual deficits; Z90.710 Acquired absence of both cervix and uterus; Z88.2 Allergy status to sulfonamides
CPT/HCPCS: 36415; 80053; 84484; 85025; 93005; 99284; J2060; J7030

== ENCOUNTER 2019-01-25 21:32 | Emergency (ER) | payer SELFPAY ==
[~2019-01-25] VITALS: Ht 165.1 cm; Wt 72.6 kg
[2019-01-25 21:50] VITALS: BP 154/93
[2019-01-26] MEDS ORDERED: LORazepam 0.5 MG TAB PO ONE (01:00)
[2019-01-26 01:29] LABS: Alcohol, Urine < 3.0 mg/dL (0-5); Amphetamine Screen, Urine NEGATIVE (NEGATIVE); Barbiturate Scree,Urine NEGATIVE (NEGATIVE); Benzodiazephine Screen, Urine NEGATIVE (NEGATIVE); Cocaine Screen, Urine NEGATIVE (NEGATIVE); Opiate Scree,Urine NEGATIVE (NEGATIVE); Phencyclidine Screen, Urine NEGATIVE (NEGATIVE)
[2019-01-26 01:37] LABS: Cannabinoid Screen, Urine POSITIVE (NEGATIVE)
== END 2019-01-26 01:23 | disposition home or self-care (01) ==
LOC: EDBD 21:32 → ER 21:32
DX: M62.89 Other specified disorders of muscle (principal); F41.9 Anxiety disorder, unspecified; T42.4X5A Adverse effect of benzodiazepines, initial encounter; Y92.89 Other specified places as the place of occurrence of the external cause; E11.9 Type 2 diabetes mellitus without complications; I10 Essential (primary) hypertension; F17.210 Nicotine dependence, cigarettes, uncomplicated; Z86.73 Personal history of transient ischemic attack (TIA), and cerebral infarction without residual deficits; Z90.710 Acquired absence of both cervix and uterus; Z88.2 Allergy status to sulfonamides
CPT/HCPCS: 80307